=== PATIENT | female | born 1980 | race Caucasian/White ===

== ENCOUNTER → 2019-06-18 | Outpatient (CLI) | payer OTHER ==
--- NOTE | 2019-06-18 15:25 | 2DMMODE ---
[facility] [address] [place] [address] 2 D/M-MODE ECHOCARDIOGRAM Name: BUSTER ARAMBULA Room #: REG [facility] [id number] Admission: 06/18/19 Attend Phys: Syed Brown Discharge: Date of : 78 Date of Service: 06/18/19 1524 Report #: [id number] THIS REPORT FOR: //name// APPROVED REPORT Study performed: 06/18/2019 13:21:30 EXAM: Comprehensive 2D, Doppler, and color-flow Echocardiogram Patient Location: Out-Patient Room #: Echo lab 2 Status: routine BSA: 1.59 HR: 57 bpm BP: 98/58 mmHg Rhythm: Bradycardia Other Information Study Quality: Good Indications Palpitations 2D Dimensions RVDd: 31.26 mm IVSd: 7.64 (7-11mm) LVOT Diam: 17.21 (18-24mm) LVDd: 38.26 mm PWd: 6.33 (7-11mm) Ascending Ao: 24.49 (22-36mm) LVDs: 26.82 (25-40mm) Aortic Root: 20.16 mm IVC: 18.00 mm Volumes Left Atrial Volume (Systole) Single Plane 4CH: 23.82 mL Single Plane 2CH: 19.42 mL LA ESV Index: 16.00 mL/m2 Aortic Valve AoV Peak Neftali.: 1.46 m/s AO Peak Gr.: 8.57 mmHg LVOT Max P.46 mmHg LVOT Max V: 1.06 m/s LUIS A Vmax: 1.68 cm2 Mitral Valve E/A Ratio: 2.0 MV Decel. Time: 234.30 ms MV E Max Neftali.: 1.03 m/s [facility] [address] [address] 2 D/M-MODE ECHOCARDIOGRAM Name: BUSTER ARAMBULA [facility] [id number] Admission: 06/18/19 Attend Phys: Syed Brown Discharge: Date of : 78 Date of Service: 06/18/19 1524 Report #: [id number] MV A Neftali.: 0.52 m/s MV PHT: 67.95 ms IVRT: 64.59 ms Pulmonary Valve PV Peak Neftali.: 1.35 m/s PV Peak Gr.: 7.27 mmHg Pulmonary Vein P Vein S: 0.62 m/s P Vein A: 0.19 m/s P Vein D: 0.57 m/s P Vein A Dur.: 83.0 msec P Vein S/D Ratio: 1.09 Tricuspid Valve TR Peak Neftali.: 2.15 m/s TR Peak Gr.: 18.47 mmHg PA Pressure: 23.00 mmHg Left Ventricle The left ventricle is normal size. There is normal LV segmental wall motion. There is normal left ventricular wall thickness. Left ventricular systolic function is normal. The left ventricular ejection fraction is within the normal range. LVEF is 55-60%. The left ventricular diastolic function is normal. Right Ventricle The right ventricle is normal size. The right ventricular systolic function is normal. Atria The left atrium size is normal. The right atrium size is normal. Aortic Valve The aortic valve is normal in structure. No aortic regurgitation is present. There is no aortic valvular stenosis. Mitral Valve The mitral valve is normal in structure. No mitral regurgitation. No evidence of mitral valve stenosis. Tricuspid Valve The tricuspid valve is normal in structure. There is trace tricuspid regurgitation. Estimated PAP 23 mmHg. There is no pulmonary hypertension. Pulmonic Valve [address] [address] 2 D/M-MODE ECHOCARDIOGRAM Name: BUSTER ARAMBULA Room #: REG Anthony#: [id number] Admission: 06/18/19 Attend Phys: Syed Brown Discharge: Date of : 78 Date of Service: 06/18/19 1524 Report #: [id number] The pulmonary valve is normal in structure. There is no pulmonic valvular regurgitation. Great Vessels The aortic root is normal in size. IVC is normal in size and collapses >50% with inspiration. Pericardium There is no pericardial effusion. <Conclusion> Technically difficult study Left ventricular systolic function is normal. There is normal LV segmental wall motion. LVEF is 55-60%. Normal diastolic function The aortic valve is normal in structure. No aortic regurgitation or stenosis The mitral valve is normal in structure. No mitral regurgitation. There is trace tricuspid regurgitation. Estimated pulmonary artery pressure of 23 mmHg. There is no pericardial effusion. <ELECTRONICALLY SIGNED> By: Ariel Canales MD, FACC 06/18/19 1524 1524 1524 Ariel Canales MD, FACC /INF
== END ==
LOC: CV 12:11
DX: R00.2 Palpitations (principal); Z88.2 Allergy status to sulfonamides